=== PATIENT | female | born 1960 | race Caucasian/White ===

== ENCOUNTER 2017-01-27 06:07 | Day surgery (SDC) | payer OTHER ==
[~2017-01-27 06:07] MED LIST: IV START KIT ONE; LACTATED RINGERS 1,000 ML ONE
[2017-01-27] MEDS ORDERED: MIDAZOLAM HCL 5 MG/5 ML VIAL ONE (06:38)
[2017-01-27] MEDS ORDERED: FENTANYL 250 MCG/5 ML AMP ONE (06:39)
[2017-01-27] MEDS ORDERED: MIDAZOLAM HCL 5 MG/5 ML VIAL IV PRN (06:57)
[2017-01-27] MEDS ORDERED: FENTANYL 250 MCG/5 ML AMP IV PRN (06:57)
[2017-01-27] MEDS ORDERED: LACTATED RINGERS 1,000 ML IV SCH (07:00)
== END 2017-01-27 08:42 | disposition home or self-care (01) ==
LOC: SDC 06:07
PROVIDERS: ATTEND Family Medicine
PROC: 0DJD8ZZ Inspection of Lower Intestinal Tract, Via Natural or Artificial Opening Endoscopic (ICD-10-PCS; principal; 2017-01-27)
DX: Z12.11 Encounter for screening for malignant neoplasm of colon (principal); K57.30 Diverticulosis of large intestine without perforation or abscess without bleeding; I10 Essential (primary) hypertension; E78.5 Hyperlipidemia, unspecified
CPT/HCPCS: 45378; J3010; J2250; J7120